=== PATIENT | female | born 1955 | race Caucasian/White ===

== ENCOUNTER 2017-02-10 00:08 | Emergency (ER) | payer BC ==
[~2017-02-10] VITALS: Ht 167.6 cm; Wt 63.1 kg
[2017-02-10 00:15] VITALS: BP 142/83; PULSE 77; RESP 16; TEMP 97.6; O2SAT 99
[2017-02-10] MEDS ORDERED: IMIT50TA PO (00:23)
[2017-02-10] MEDS ORDERED: AMOX875T PO (00:23)
[2017-02-10] MEDS ORDERED: SODIUM CHLOR 0.9% 1000 ML INJ 1,000 ML IV SCH (00:53)
--- NOTE | 2017-02-10 00:59 | PD ---
HPI Chief Complaint: Abdominal Pain Time Seen by Provider: 00:47 Travel History International Travel<30 days: No Contact w/Intl Traveler<30days: No Traveled to known affect area: No History of Present Illness HPI 61-year-old female complains of right-sided abdominal pain. Patient states that the pain started earlier today. Patient states the pain in cramping pain localized to right upper quadrant and right mid abdomen area. Patient states that the pain radiated to the right flank area earlier today but not now. Patient denies any coughing congestion. Patient denies any fever chills. Patient denies any nausea vomiting diarrhea. Patient states that she has been constipated for the past 3 days. Patient status post cholecystectomy and appendectomy. PFSH Past Medical History Cancer: Yes (BREAST) Gastrointestinal Disorders: Yes (COLONOSCOPY:2016 "DIVERTICULOSIS") Migraines: Yes Tetanus Vaccination: < 5 Years Influenza Vaccination: Yes ?: Not Menopausal: Yes : 4 Para: 2 Miscarriage: 2 Tubal Ligation: Yes Past Surgical History Abdominal Surgery: Yes ("GANGRENE OF BOWELS" PARTIAL COLON RESECTION: AGE 34) Appendectomy: Yes Section: Yes (X2) Cholecystectomy: Yes Mastectomy: Yes (LEFT) Tonsillectomy: Yes Other Surgery: Yes (TOTAL RECONSTRUCTIVE SURGERY FOR TMJ) Social History Alcohol Use: Yes ("RARELY") Tobacco Use: No Substance Use: No Allergies-Medications (Allergen,Severity, Reaction): Coded Allergies: shellfish derived (Verified Allergy, Severe, 02/10/17) "PUTS ME IN AN AWAKE COMA. IT'S LIKE I'M ASLEEP AND I CAN HEAR EVERYTHING AROUND ME, BUT I CAN'T WAKE UP" codeine (Verified Allergy, Intermediate, 02/10/17) "SEVERE PAIN IN THE HEAD" Reported Meds & Prescriptions Reported Meds & Active Scripts Active Reported Imitrex (Sumatriptan Succinate) 50 Mg Tab 50 Mg PO ONCE PRN If a satisfactory response has not been obtained at 2 hours, a second dose may be administered Amoxicillin 875 Mg Tab 875 Mg PO BID Review of Systems General / Constitutional: No: Fever Eyes: No: Visual changes HENT: No: Headaches Cardiovascular: No: Chest Pain or Discomfort Respiratory: No: Shortness of Breath Gastrointestinal: Positive: Abdominal Pain, Constipation Genitourinary: No: Dysuria Musculoskeletal: No: Pain Skin: No Rash Neurologic: No: Weakness Psychiatric: No: Depression Endocrine: No: Polydipsia Hematologic/Lymphatic: No: Easy Bruising Physical Exam Narrative GENERAL: Well-nourished, well-developed patient. SKIN: Focused skin assessment warm/dry. HEAD: Normocephalic. EYES: No scleral icterus. No injection or drainage. NECK: Supple, trachea midline. No JVD or lymphadenopathy. CARDIOVASCULAR: Regular rate and rhythm without murmurs, gallops, or rubs. RESPIRATORY: Breath sounds equal bilaterally. No accessory muscle use. GASTROINTESTINAL: Abdomen soft, nondistended. Patient has moderate tenderness on palpation right upper quadrant and right mid abdomen. No rebound tenderness. No mass. MUSCULOSKELETAL: No cyanosis, or edema. BACK: Nontender without obvious deformity. No CVA tenderness. Neurologic exam normal. Data Data Last Documented VS Vital Signs Date Time Temp Pulse Resp B/P (MAP) Pulse Ox O2 Delivery O2 Flow Rate FiO2 02/10/17 02:22 91 16 133/86 (102) 99 Room Air 02/10/17 00:15 97.6 Orders Orders Complete Blood Count With Diff (02/10/17 00:53) Comprehensive Metabolic Panel (02/10/17 00:53) Lipase (02/10/17 00:53) Prothrombin Time / Inr (Pt) (02/10/17 00:53) Act Partial Throm Time (Ptt) (02/10/17 00:53) Urinalysis - C+S If Indicated (02/10/17 00:53) Ct Abd/Pel W Iv Contrast(Rout) (02/10/17 00:53) Iv Access Insert/Monitor (02/10/17 00:53) Ecg Monitoring (02/10/17 00:53) Oximetry (02/10/17 00:53) Ondansetron Inj (Zofran Inj) (02/10/17 01:00) Pantoprazole Inj (Protonix Inj) (02/10/17 01:00) Sodium Chlor 0.9% 1000 Ml Inj (Ns 1000 M (02/10/17 00:53) Sodium Chloride 0.9% Flush (Ns Flush) (02/10/17 01:00) Urine Culture (02/10/17 01:10) Iohexol 350 Inj (Omnipaque 350 Inj) (02/10/17 01:59) Labs Laboratory Tests Test 02/10/17 00:55 02/10/17 01:10 White Blood Count 4.3 TH/MM3 Red Blood Count 4.41 MIL/MM3 Hemoglobin 12.7 GM/DL Hematocrit 38.5 % Mean Corpuscular Volume 87.3 FL Mean Corpuscular Hemoglobin 28.8 PG Mean Corpuscular Hemoglobin Concent 33.0 % Red Cell Distribution Width 13.1 % Platelet Count 246 TH/MM3 Mean Platelet Volume 7.2 FL Neutrophils (%) (Auto) 57.9 % Lymphocytes (%) (Auto) 32.8 % Monocytes (%) (Auto) 6.6 % Eosinophils (%) (Auto) 1.1 % Basophils (%) (Auto) 1.6 % Neutrophils # (Auto) 2.5 TH/MM3 Lymphocytes # (Auto) 1.4 TH/MM3 Monocytes # (Auto) 0.3 TH/MM3 Eosinophils # (Auto) 0.0 TH/MM3 Basophils # (Auto) 0.1 TH/MM3 CBC Comment DIFF FINAL Differential Comment Prothrombin Time 10.8 SEC Prothromb Time International Ratio 1.0 RATIO Activated Partial Thromboplast Time 28.9 SEC Blood Urea Nitrogen 12 MG/DL Creatinine 0.75 MG/DL Random Glucose 101 MG/DL Total Protein 7.4 GM/DL Albumin 3.8 GM/DL Calcium Level 8.7 MG/DL Alkaline Phosphatase 94 U/L Aspartate Amino Transf (AST/SGOT) 15 U/L Alanine Aminotransferase (ALT/SGPT) 16 U/L Total Bilirubin 0.5 MG/DL Sodium Level 134 MEQ/L Potassium Level 3.4 MEQ/L Chloride Level 99 MEQ/L Carbon Dioxide Level 26.0 MEQ/L Anion Gap 9 MEQ/L Estimat Glomerular Filtration Rate 78 ML/MIN Lipase 102 U/L Urine Color YELLOW Urine Turbidity CLEAR Urine pH 5.5 Urine Specific [place] 1.015 Urine Protein NEG mg/dL Urine Glucose (UA) NEG mg/dL Urine Ketones NEG mg/dL Urine Occult Blood TRACE Urine Nitrite NEG Urine Bilirubin NEG Urine Leukocyte Esterase SMALL Urine RBC 0-3 /hpf Urine WBC 6-8 /hpf Urine WBC Clumps OCC Urine Squamous Epithelial Cells 0-5 /hpf Urine Mucus OCC /lpf Microscopic Urinalysis Comment CULTURE INDICATED MDM Medical Decision Making Medical Screen Exam Complete: Yes Emergency Medical Condition: Yes Interpretation(s) 2:[address] scan abdomen and pelvis negative acute pathology. CBC within normal limit. Sodium 134. Potassium 3.4. CMP otherwise within normal limit. UA positive with WBC. Differential Diagnosis Differential diagnosis including UTI, pyelonephritis, nephrolithiasis, colitis, musculoskeletal. Narrative Course 61-year-old female with right upper quadrant and right mid abdominal pain. Diagnosis Primary Impression: Abdominal pain Qualified Codes: R10.11 - Right upper quadrant pain Additional Impression: UTI (urinary tract infection) Qualified Codes: N30.00 - Acute cystitis without hematuria Patient Instructions: General Instructions Additional Instructions: Take medications as directed. [id number] stool supple or Fleet enema. Follow-up with personal physician. Return if worse. Med/Other Pt SpecificInfo: Prescription(s) given Scripts Sulfamethoxazole-Trimethoprim (Bactrim DS) 800-160 Mg Tab 1 TAB PO BID for Infection for 14 Days, TAB 0 Refills Prov: Finesse Espinoza MD 02/10/17 Ondansetron Odt (Zofran Odt) 4 Mg Tab 4 MG SL Q6HR Y for Nausea/Vomiting, #10 TAB 0 Refills Prov: Finesse Espinoza MD 02/10/17 Disposition: 01 DISCHARGE HOME Condition: Stable Finesse Espinoza MD Feb 10, 2017 00:59
[2017-02-10] MEDS ORDERED: ONDANSETRON HCL 4 MG/2 ML VIAL IVP ONE (01:00)
[2017-02-10] MEDS ORDERED: SODIUM CHLORIDE 0.9% FLUSH 10 ML FLUSH IV FLUSH PRN (01:00)
[2017-02-10] MEDS ORDERED: PANTOPRAZOLE SODIUM 40 MG VIAL IVP ONE (01:00)
[2017-02-10 01:07] LABS: AUTOMATED NEUTROPHIL # 2.5 TH/MM3 (1.8-7.7); BASOPHIL # 0.1 TH/MM3 (0-0.2); BASOPHIL % 1.6 % (0.0-2.0); EOSINOPHIL % 1.1 % (0.0-4.0); HEMATOCRIT 38.5 % (35.0-46.0); HEMO FLAGS DIFF FINAL; LYMPH % 32.8 % (9.0-44.0); LYMPHOCYTE # 1.4 TH/MM3 (1.0-4.8); MEAN CELL VOLUME 87.3 FL (80.0-100.0); MEAN CORPUSCULAR HEMOGLOBIN 28.8 PG (27.0-34.0); MONO % 6.6 % (0.0-8.0); NEUT % 57.9 % (16.0-70.0); PLATELET COUNT 246 TH/MM3 (150-450); RED BLOOD COUNT 4.41 MIL/MM3 (4.00-5.30); RED CELL DISTRIBUTION WIDTH 13.1 % (11.6-17.2); WHITE BLOOD COUNT 4.3 TH/MM3 (4.0-11.0)
[2017-02-10 01:18] LABS: CHLORIDE 99 MEQ/L (98-107); POTASSIUM 3.4 MEQ/L (3.5-5.1); SODIUM (NA) 134 MEQ/L (136-145)
[2017-02-10 01:22] LABS: ANION GAP 9 MEQ/L (5-15); BLOOD UREA NITROGEN 12 MG/DL (7-18)
[2017-02-10 01:24] LABS: GLUCOSE,URINE NEG (NEG); KETONE, URINE NEG (NEG); NITRITE,URINE NEG (NEG); PH, URINE 5.5 (5.0-8.5)
[2017-02-10 01:24] LABS: APTT (PATIENT) 28.9 SEC (24.3-30.1); PROTHROMBIN TIME - PATIENT 10.8 SEC (9.8-11.6)
[2017-02-10 01:25] LABS: ALT (GPT) 16 U/L (10-53); AST (GOT) 15 U/L (15-37); GLOMERULAR FILTRATION RATE 78 ML/MIN (>89)
[2017-02-10 01:26] LABS: TOTAL BILIRUBIN ADULT 0.5 MG/DL (0.2-1.0)
[2017-02-10 01:28] LABS: ALKALINE PHOSPHATASE 94 U/L (45-117)
[2017-02-10 01:39] LABS: BLOOD, URINE TRACE (NEG); URINE COLOR YELLOW (YELLW/STRAW)
[2017-02-10 01:40] LABS: MUCUS URINE OCC /lpf (OCC); SQUAMOUS EPITHELIAL CELL URINE 0-5 /hpf (0-5)
[2017-02-10 01:41] LABS: RBC, URINE 0-3 /hpf (0-3)
[2017-02-10 01:42] LABS: COMMENT (UR) CULTURE INDICATED; CULTURE IF INDICATED CULTURE INDICATED
[2017-02-10] MEDS ORDERED: IOHEXOL 350 MG/ML 10 ML VIAL (for RAD DIAG) IVCONTRAST ONE (01:59)
--- NOTE | 2017-02-10 02:20 | RADRPT ---
EXAM DATE/TIME: 02/10/2017 01:46 [facility] COMPARISON: No previous studies available for comparison. INDICATIONS : Right upper quadrant pain. Constipation. IV CONTRAST: 75 cc Omnipaque 350 (iohexol) IV ORAL CONTRAST: No oral contrast ingested. RADIATION DOSE: 7.92 CTDIvol (mGy) MEDICAL HISTORY : None SURGICAL HISTORY : Colon resection. Appendectomy. section.Tubal ligation. Cholecystectomy. ENCOUNTER: Initial ACUITY: 4 - 6 days PAIN SCALE: 7/10 LOCATION: Right upper quadrant TECHNIQUE: Volumetric scanning of the abdomen and pelvis was performed. Using automated exposure control and ad justment of the mA and/or kV according to patient size, radiation dose was kept as low as reasonably achievable to obtain optimal diagnostic quality images. DICOM format image data is available electro nically for review and comparison. FINDINGS: LOWER LUNGS: The visualized lower lungs are clear. LIVER: Homogeneous density without lesion. There is no dilation of the biliary tree. There has been prior cholecystectomy clips in the gallbladder fossa. SPLEEN: Normal size without lesion. PANCREAS: Within normal limits. KIDNEYS: Normal in size and shape. There is no mass, stone or hydronephrosis. There is an incidental 5 mm low -density lesion in the left mid kidney anterior cortex that is too small to characterize. ADRENAL GLANDS: No acute abnormality. There is calcification associated with the right adrenal gland. VASCULAR: There is no aortic aneurysm. There is mild atherosclerotic disease. BOWEL/MESENTERY: Moderate size hiatal hernia is present. Small bowel demonstrates no abnormality. There is mild sigmoi d diverticulosis. No free air or free fluid is present. ABDOMINAL WALL: There is 15 mm soft tissue density area at the anterior abdominal wall inferiorly. RETROPERITONEUM: There is no lymphadenopathy. BLADDER: No wall thickening or mass. REPRODUCTIVE: Uterus has a lobulated contour. INGUINAL: There is no lymphadenopathy or hernia. MUSCULOSKELETAL: There are degenerative changes of the spine with mild levoscoliosis. CONCLUSION: 1. No acute finding is identified to explain the clinical symptoms. 2. Nonacute findings include hiatal hernia and soft tissue density associated with the inferior abdom inal wall that presumably represents postsurgical scar. Bar Rivas MD on February 10, 2017 at 2:14 Board Certified Radiologist. This report was verified electronically.
[2017-02-10 02:22] VITALS: BP 133/86; PULSE 91; RESP 16; O2SAT 99
[2017-02-10] MEDS ORDERED: ONDANSETRON HCL 4 MG/2 ML VIAL IV PUSH ONE (02:30)
[2017-02-10] MEDS ORDERED: SULFAMETHOXAZOLE-TRIMETHOPRIM DS 800-160 MG TAB PO ONE (02:30)
[2017-02-10] MEDS ORDERED: BACT800T5 PO (02:31)
[2017-02-10] MEDS ORDERED: ZOFR4TAB3 SL (02:31)
== END 2017-02-10 02:46 | disposition home or self-care (01) ==
LOC: PHED 00:08
DX: R10.11 Right upper quadrant pain (principal); N30.00 Acute cystitis without hematuria
CPT/HCPCS: 74177; 80053; 81001; 83690; 85025; 85610; 85730; 87086; 96361; 96374; 96375; 96376; 99285; C9113; J2405; J7030; Q9967

== ENCOUNTER 2017-10-31 17:07 | Observation (INO) | END 2017-11-01 16:15 | disposition home or self-care (01) | DX: R07.89 Other chest pain (principal); R00.1 Bradycardia, unspecified; I49.9 Cardiac arrhythmia, unspecified; Z85.3 Personal history of malignant neoplasm of breast | CPT/HCPCS: 71045; 78452; 80048; 82550; 82552; 84484; 85025; 85610; 85730; 93005; 93017; 96360; 96361; 99285; A9502; G0378; J2785; J7030 ==